=== PATIENT | female | born 1995 | race Caucasian/White ===

== ENCOUNTER 2023-06-18 16:41 | Emergency (ER) | payer OTHER, SELFPAY ==
[2023-06-18 16:50] VITALS: BP 143/87; PULSE 102; RESP 20; TEMP 36.5; O2SAT 99
--- NOTE | 2023-06-18 16:54 | ED.URI ---
HPI - URI/Sore Throat General Chief Complaint: Upper Respiratory Infection Stated Complaint: Cold Symptoms Source: patient and RN notes reviewed History of Present Illness HPI Narrative: 27 yo F presents to urgent care with complaints of congestion, sore throat, and bilateral ear fullness x 4 days. Pt denies any fevers, chills, chest pain, SOB, N/V/D, ear pain, or other complaints. Pt has been taking Dayquil and Nyquil at home with moderate relief. 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 Related Data Home Medications Medication Instructions Recorded Confirmed dextroamphetamine-amphetamine ER PO 06/18/23 10 mg 24hr capsule,extend release Allergies Allergy/AdvReac Type Severity Reaction Status Date / Time No Known Allergies Allergy Verified 06/18/23 16:52 Review of Systems Review of Systems: Pertinent positives and pertinent negatives per HPI. PMFSH Comments At the time of my signature, I reviewed and agree with the nursing past medical, surgical, social, and family history. There is no relevant family history pertinent to the patient complaint. Exam Narrative: GENERAL: This is a well-nourished, well-developed patient, in no apparent distress. HEAD: normocephalic, atraumatic. EYES: Sclera clear/white. Vision is grossly intact. EARS: External ears normal, auditory canals clear and without drainage, TMs normal without perforation. Hearing grossly intact. NOSE: External nose normal with no obvious nasal discharge, nares without redness, no rhinorrhea. + congestion THROAT: Mucous membranes moist, posterior pharynx clear. NECK: Neck supple, non-tender without lymphadenopathy, masses or thyromegaly. CARDIOVASCULAR: Regular rate and rhythm without murmurs, gallops, or rubs. RESPIRATORY: Clear to auscultation. Breath sounds equal bilaterally. No wheezes, rales, or rhonchi. SKIN: warm, intact with no suspicious lesions or rash, good texture and turgor. NEURO: awake, alert, and oriented to person, place and time. There were no obvious focal neurologic abnormalities. Course Course Level of Care: Express Care Visit Vital Signs Vital signs: Vital Signs Temperature 97.7 F 06/18/23 16:50 Pulse Rate 102 H 06/18/23 16:50 Respiratory Rate 20 06/18/23 16:50 Blood Pressure 143/87 H 06/18/23 16:50 Pulse Oximetry 99 06/18/23 16:50 Oxygen Delivery Room Air 06/18/23 16:50 Temperature 97.7 F 06/18/23 16:50 Pulse Rate 102 H 06/18/23 16:50 Respiratory Rate 20 06/18/23 16:50 Blood Pressure 143/87 H 06/18/23 16:50 Pulse Oximetry 99 06/18/23 16:50 Oxygen Delivery Room Air 06/18/23 16:50 Reviewed MDM - URI/Sore Throat MDM Narrative Medical decision making narrative: You most likely have a viral illness that does not require antibiotics at this time. It is recommended you start using the Flonase twice a day on each side and if you have no improvement in 4-5 days, you can start taking the Augmentin. Viral illness may last between 7-21 days; antibiotics do not cure viral illness and are NOT recommended at this time. Also, recommend symptomatic treatment includes: rest, fluids, and increase humidity of the air at home. Recommend Acetaminophen as directed on the bottle to reduce fever, pain, headache. Please schedule a follow-up visit with your personal physician for further evaluation and treatment within 3-5days. If your symptoms persist, change or worsen significantly before you can contact your personal physician then please, without delay, go to the emergency department for further evaluation. It was discussed with pt why antibiotics are not recommended at this time but pt states I just want the antibiotics. Differential Diagnosis Differential diagnosis: Likely upper respiratory infection, sinusitis and viral infection Critical Care Time Critical Care Time Critical Care Time: No Dischar
== END 2023-06-18 17:09 | disposition home or self-care (01) ==
PROVIDERS: Emergency Provider Nurse Practitioner Family
DX: J06.9 Acute upper respiratory infection, unspecified (principal)
CPT/HCPCS: 99213; G0463